=== PATIENT | male | born 1955 | race Caucasian/White ===

== ENCOUNTER 2016-07-28 14:27 | Emergency (ER) | payer MEDICARE, MEDICAID ==
[~2016-07-28 14:27] MED LIST: ASPIRIN81 M1 CH; ASPIRIN81 MG PO; ATIVAN1 M2 PO; CALCITRATE200 MG PO; CERTAVITE-ANTI1 EACH PO; CITRUS CALCIUM200 MG; CITRUS CALCIUM200 MG PO; COMPAZINE10 M PO; DETROL LA4 MG; DILANTIN100 M1 PO; DILANTIN100 MG; DILANTIN100 MG PO; DILANTIN30 MG; DITROPAN5 MG PO; DULCOLAX5 MG PO; ENABLEX15 MG PO; L-THYROXINE; L-THYROXINE PO; LEVAQUIN750 MG; LEVOTHROID100 MCG; LEVOTHYROXINE112 MC3 PO; LISINOPRIL10 MG; LISINOPRIL10 MG PO; LORTAB 5-325 M1 EAC1 PO; LOVENOX40 MG/0.1 SQ; MILK OF MAGNESIA PO; MIRALAX; MIRALAX12 EA; MIRALAX17 G2 PO; MIRALAX255 GM PO; MULTIVITAMIN1 CAP; MULTIVITAMIN1 TAB; MULTIVITAMIN1 TAB PO; OMEPRAZOLE20 M4 PO; OMEPRAZOLE20 MG PO; PHENOBARBITAL64.8 M1 PO; PHENOBARBITAL64.8 MG; PHENOBARBITAL64.8 MG PO; PHENYTEK PO; PHENYTOIN SODI100 M2 PO; PHENYTOIN SODI100 PO; PRILOSEC20 MG; PRINIVIL10 MG; SIMVASTATIN80 M1 PO; SIMVASTATIN80 MG PO; SYNTHROID112 MCG PO; TAB-A-VITE1 EAC1 PO; TOFRANIL PO; TYLENOL325 M2 PO; VESICARE10 M1 PO; VIMPAT100 M1 PO; VIMPAT50 MG PO; VYTORIN 10/40 T1 TAB; VYTORIN 10/80 T1 TAB; ZITHROMAX250MG Z-PAK PO; ZOCOR40 MG; ZOFRAN ODT4 MG/UDTAB PO; ZONEGRAN100 MG; ZONISAMIDE100 M1 PO; ZONISAMIDE100 MG; ZONISAMIDE100 MG PO; [UNRECOGNIZED DRUG - CODE]
[2017-01-25] MEDS ORDERED: CRESTOR40 MG/TAB PO (11:22)
[2017-01-29] MEDS ORDERED: [UNRECOGNIZED DRUG - REMARK] (12:13)
== END 2016-07-28 18:44 ==
LOC: EDMED 14:27
DX: K94.01 Colostomy hemorrhage (principal)

== ENCOUNTER 2016-08-13 19:56 | Inpatient (IN) | payer MEDICARE, MEDICAID ==
[2016-08-13 21:02] LABS: BASO % 0.2 % (0-2); EOS % 2.5 % (0-7); EOSINOPHIL ABSOLUTE COUNT 0.2 tho/cmm (0.0-0.7); HCT-HEMATOCRIT 43.8 % (36.0-53.5); IMMATURE GRANULOCYTES ABSOLUTE 0.01 tho/cmm (0-0.03); IMMATURE GRANULOCYTES PERCENT 0.1 % (0-0.3); INR 1.3 INR (0.9-1.1); LYMPH % 7.9 % (20-45); LYMPH ABSOLUTE COUNT 0.7 tho/cmm (0.8-4.5); MCH (MEAN CORPUSCULAR HGB) 30.7 pg (28.0-32.0); MCHC MEAN CORPUSCULAR HGB CONC 34.2 % (32.0-36.0); MCV (MEAN CELL VOLUME) 89.6 fl (82.0-96.0); MEAN PLATELET VOLUME 10.2 cmc (9.4-12.4); MONO % 19.9 % (0-12); MONOCYTE ABSOLUTE COUNT 1.8 tho/cmm (0.0-1.2); NEUTROPHIL ABSOLUTE COUNT 6.2 tho/cmm (1.6-8.0); NEUTROPHIL-AUTOMATED 6.2 tho/cmm (1.6-8.0); NEUTROPHILS % 69.4 % (40-80); PLATELET COUNT 190 tho/cmm (150-450); RED BLOOD COUNT 4.89 mil/cmm (4.40-5.70); RED CELL DISTRIBUTION WIDTH 14.1 % (12.4-16.4); WHITE BLOOD COUNT 8.9 tho/cmm (4.0-10.0)
[2016-08-13 21:16] LABS: ALB/GLOB RATIO 1.1 (0.8-2.0); ALBUMIN 3.9 g/dl (3.5-5.0); ALKALINE PHOSPHATASE 132 U/L (33-138); ALT/SGPT 29 U/L (12-78); ANION GAP 14 mmol/L (0-20); AST/SGOT 25 U/L (10-40); BILIRUBIN,TOTAL 0.6 mg/dl (0.0-1.5); BLOOD UREA NITROGEN 29 mg/dl (6-24); CALCIUM 8.9 mg/dl (8.5-10.5); CARBON DIOXIDE-VENOUS 25 mmol/L (22-32); CHLORIDE 100 mmol/l (96-110); CREATININE 1.04 mg/dl (0.60-1.30); GLUCOSE 124 mg/dL (70-110); LIPASE 78 U/L (73-393); POTASSIUM 3.8 mmol/L (3.7-5.1); SODIUM 135 mmol/L (135-145); eGFR VALUE FOR BLACK 89 mL/Min
[2016-08-13] MEDS ORDERED: THERA M PLUS TA1 TAB PO (21:32)
[2016-08-14 05:57] LABS: BASO % 0.6 % (0-2); EOS % 7.4 % (0-7); EOSINOPHIL ABSOLUTE COUNT 0.5 tho/cmm (0.0-0.7); HCT-HEMATOCRIT 39.5 % (36.0-53.5); HGB-HEMOGLOBIN 13.5 gm/dl (13.5-17.0); IMMATURE GRANULOCYTES ABSOLUTE 0.01 tho/cmm (0-0.03); IMMATURE GRANULOCYTES PERCENT 0.2 % (0-0.3); LYMPH % 20.5 % (20-45); LYMPH ABSOLUTE COUNT 1.3 tho/cmm (0.8-4.5); MCH (MEAN CORPUSCULAR HGB) 30.8 pg (28.0-32.0); MCHC MEAN CORPUSCULAR HGB CONC 34.2 % (32.0-36.0); MEAN PLATELET VOLUME 10.3 cmc (9.4-12.4); MONO % 19.4 % (0-12); MONOCYTE ABSOLUTE COUNT 1.3 tho/cmm (0.0-1.2); NEUTROPHIL ABSOLUTE COUNT 3.4 tho/cmm (1.6-8.0); NEUTROPHIL-AUTOMATED 3.4 tho/cmm (1.6-8.0); NEUTROPHILS % 51.9 % (40-80); PLATELET COUNT 162 tho/cmm (150-450); RED BLOOD COUNT 4.39 mil/cmm (4.40-5.70); RED CELL DISTRIBUTION WIDTH 14.1 % (12.4-16.4); WHITE BLOOD COUNT 6.5 tho/cmm (4.0-10.0)
[2016-08-14 06:06] LABS: ANION GAP 11 mmol/L (0-20); BLOOD UREA NITROGEN 21 mg/dl (6-24); CALCIUM 7.9 mg/dl (8.5-10.5); CARBON DIOXIDE-VENOUS 27 mmol/L (22-32); CHLORIDE 102 mmol/l (96-110); CREATININE 0.82 mg/dl (0.60-1.30); GLUCOSE 99 mg/dL (70-110); SODIUM 136 mmol/L (135-145); eGFR VALUE FOR BLACK >90 mL/Min
[2016-08-14 06:13] LABS: POTASSIUM 3.8 mmol/L (3.7-5.1)
--- NOTE | 2016-08-14 13:30 | NUR ---
VN ROUNDING-DID NOT ROUND ON PATIENT HE IS DEAF. CHART REVIEWED
--- NOTE | 2016-08-14 21:17 | NUR ---
VIRTUAL CARE NOTE: ASSESSMENT DEFERRED. PT. SLEEPING.
[2016-08-15 06:56] LABS: ANION GAP 10 mmol/L (0-20); BLOOD UREA NITROGEN 8 mg/dl (6-24); CALCIUM 7.8 mg/dl (8.5-10.5); CARBON DIOXIDE-VENOUS 28 mmol/L (22-32); CHLORIDE 107 mmol/l (96-110); CREATININE 0.58 mg/dl (0.60-1.30); GLUCOSE 83 mg/dL (70-110); POTASSIUM 3.5 mmol/L (3.7-5.1); SODIUM 141 mmol/L (135-145); eGFR VALUE FOR BLACK >90 mL/Min
[2016-08-16 05:07] LABS: BASO % 0.8 % (0-2); EOS % 10.6 % (0-7); EOSINOPHIL ABSOLUTE COUNT 0.4 tho/cmm (0.0-0.7); HCT-HEMATOCRIT 35.8 % (36.0-53.5); IMMATURE GRANULOCYTES ABSOLUTE 0.01 tho/cmm (0-0.03); IMMATURE GRANULOCYTES PERCENT 0.3 % (0-0.3); LYMPH % 25.1 % (20-45); MCH (MEAN CORPUSCULAR HGB) 30.5 pg (28.0-32.0); MCHC MEAN CORPUSCULAR HGB CONC 33.5 % (32.0-36.0); MCV (MEAN CELL VOLUME) 91.1 fl (82.0-96.0); MONO % 16.5 % (0-12); MONOCYTE ABSOLUTE COUNT 0.6 tho/cmm (0.0-1.2); NEUTROPHIL ABSOLUTE COUNT 1.8 tho/cmm (1.6-8.0); NEUTROPHIL-AUTOMATED 1.8 tho/cmm (1.6-8.0); NEUTROPHILS % 46.7 % (40-80); PLATELET COUNT 147 tho/cmm (150-450); RED BLOOD COUNT 3.93 mil/cmm (4.40-5.70); RED CELL DISTRIBUTION WIDTH 13.8 % (12.4-16.4); WHITE BLOOD COUNT 3.9 tho/cmm (4.0-10.0)
[2016-08-16 05:10] LABS: ANION GAP 12 mmol/L (0-20); BLOOD UREA NITROGEN 5 mg/dl (6-24); CALCIUM 7.9 mg/dl (8.5-10.5); CARBON DIOXIDE-VENOUS 26 mmol/L (22-32); CHLORIDE 108 mmol/l (96-110); CREATININE 0.58 mg/dl (0.60-1.30); GLUCOSE 88 mg/dL (70-110); SODIUM 142 mmol/L (135-145); eGFR VALUE FOR BLACK >90 mL/Min
[2016-08-16 05:14] LABS: POTASSIUM 3.7 mmol/L (3.7-5.1)
--- NOTE | 2016-08-16 12:23 | NUR ---
VIRTUAL CARE NOTE: PT SITTING ON WHEEL CHAIR, FAMILY IN ROOM. DISCHARGE INTRUCTIONS GIVEN TO FAMILY VIA [employer] PROJECT MANAGER. QUESTIONS ANSWERED TO FAMILY. NO FURTHER QUESTIONS OR CONCERNS. INFORMED FLOOR NURSE DISCHARGE TEACHING DONE.
[2017-01-25] MEDS ORDERED: CRESTOR40 MG/TAB PO (11:22)
[2017-01-29] MEDS ORDERED: [UNRECOGNIZED DRUG - REMARK] (12:13)
== END 2016-08-16 13:10 | DRG 394 ==
LOC: EDMED 19:56 → EMR2 22:55 → 5WD 08-14 00:30
PROVIDERS: Emergency Medicine; Family Medicine; Internal Medicine; ADMIT Hospitalist
DX: K43.3 Parastomal hernia with obstruction, without gangrene (principal); Q23.1 Congenital insufficiency of aortic valve; Y83.3 Surgical operation with formation of external stoma as the cause of abnormal reaction of the patient, or of later complication, without mention of misadventure at the time of the procedure; F79 Unspecified intellectual disabilities; G40.909 Epilepsy, unspecified, not intractable, without status epilepticus; G80.8 Other cerebral palsy; H91.3 Deaf nonspeaking, not elsewhere classified; E03.9 Hypothyroidism, unspecified; K21.9 Gastro-esophageal reflux disease without esophagitis; Z90.49 Acquired absence of other specified parts of digestive tract; Z86.14 Personal history of Methicillin resistant Staphylococcus aureus infection; Z87.820 Personal history of traumatic brain injury; Z87.81 Personal history of (healed) traumatic fracture; Z79.82 Long term (current) use of aspirin; Z90.79 Acquired absence of other genital organ(s)
CPT/HCPCS: C1751; C9113; C9254; J2405; J2560; J7030; Q2009; Q9967